=== PATIENT | male | born 1980 | race African-American/Black ===

== ENCOUNTER 2025-03-30 11:01 | Emergency (ER) | payer SELFPAY ==
[~2025-03-30] VITALS: Ht 182.9 cm; Wt 100.0 kg
[2025-03-30 11:04] VITALS: O2SAT 99
[2025-03-30 11:43] LABS: BASOPHILS % 0.4 % (0.0-2.0); EOSINOPHILS % 0.8 % (0.0-5.0); HEMATOCRIT. 36.1 % (42.0-52.0); HEMOGLOBIN. 11.8 g/dL (14.0-18.0); LYMPHOCYTES % 30.1 % (20.0-50.0); MEAN CORPUSCULAR HEMOGLOBIN 26.6 pg (28.0-32.0); MEAN CORPUSCULAR HGB CONC 32.5 g/dL (31.0-37.0); MEAN CORPUSCULAR VOLUME 81.8 fL (80.0-94.0); MEAN PLATELET VOLUME 8.7 fl (7.4-10.4); MONOCYTES % 4.7 % (2.0-8.0); PLATELET 241 x1000/uL (130-400); RED BLOOD CELL COUNT 4.42 mill/uL (4.7-6.1); RED CELL DISTRIBUTION WIDTH 13.4 % (11.6-14.6)
[2025-03-30 11:49] LABS: CHLORIDE 109 mEq/L (98-107); POTASSIUM 4.8 mEq/L (3.5-5.1); SODIUM 138 mEq/L (136-145)
[2025-03-30 11:50] LABS: CARBON DIOXIDE 24 mEq/L (21-32)
[2025-03-30 11:51] LABS: CALCIUM 9.4 mg/dL (8.7-10.4)
[2025-03-30 11:55] LABS: CREATININE 0.9 mg/dL (0.6-1.3); GLUCOSE 102 mg/dL (70-105); UREA NITROGEN BLOOD 29 mg/dL (9-23)
[2025-03-30 12:57] VITALS: TEMP 36.8
[2025-03-30 13:46] VITALS: BP 116/82; PULSE 93; RESP 18; O2SAT 98
== END 2025-03-30 15:06 | disposition home or self-care (01) ==
LOC: ER 11:01
DX: R19.5 Other fecal abnormalities (principal)
CPT/HCPCS: 36415; 80048; 85025; 86850; 86900; 99283